=== PATIENT | female | born 1990 | race Caucasian/White ===

== ENCOUNTER 2020-08-29 11:51 | Emergency (ER) | payer BC | END 2020-08-29 12:04 | disposition home or self-care (01) | LOC: JVIRT 11:51 | DX: Z11.59 Encounter for screening for other viral diseases (principal) | CPT/HCPCS: 36415; 86769; 87070; 87880; C9803; G2012-GT; U0003 ==

== ENCOUNTER 2021-07-21 18:54 | Emergency (ER) | payer BC, OTHER ==
[2021-07-21 19:02] VITALS: BP 124/87; PULSE 86; TEMP 98.2; BMI 28.3
== END 2021-07-21 20:07 | disposition home or self-care (01) ==
LOC: FER 18:54
DX: S16.1XXA Strain of muscle, fascia and tendon at neck level, initial encounter (principal); G44.209 Tension-type headache, unspecified, not intractable
CPT/HCPCS: 99283-25

== ENCOUNTER 2022-08-08 17:16 | Emergency (ER) | payer BC, OTHER ==
[2022-08-08 18:28] LABS: ALBUMIN 3.7 g/dl (3.4-5.0); BILIRUBIN,TOTAL 0.7 mg/dl (0.2-1); CALCIUM 9.3 mg/dl (8.5-10); CREATININE 0.9 mg/dl (0.55-1.3); TOT PROT 7.6 g/dl (6.4-8.2)
[2022-08-08 18:33] LABS: HEMATOCRIT 44.5 % (32.4-45.2); HEMOGLOBIN 15.8 G/dL (10.7-15.3); MCH 32.7 pg (25.7-33.7); MCHC 35.4 g/dl (32.0-36.0); MEAN CELL VOLUME 92.3 fl (80-96); MEAN PLT VOLUME 8.1 fl (7.5-11.1); PLATELET COUNT 259.6 10^3/uL (134-434); RBC 4.82 10^6/uL (3.60-5.2); RDW 12.8 % (11.6-15.6); WHITE BLOOD COUNT 13.3 10^3/uL (4.0-10.8)
[2022-08-08 18:52] VITALS: BP 132/75; PULSE 71; RESP 18; TEMP 99; BMI 25.7
[2022-08-08 19:11] LABS: PLATELET ESTIMATE ADEQUATE
== END 2022-08-08 19:06 | disposition home or self-care (01) ==
LOC: FER 17:16
DX: R55 Syncope and collapse (principal)
CPT/HCPCS: 36415; 80053; 84703; 85025; 93005; 99284-25